=== PATIENT | female | born 1980 | race African-American/Black ===

== ENCOUNTER 2017-02-25 09:12 | Outpatient (CLI) | payer MEDICAID ==
[2017-02-25] VITALS (8 sets, daily range): BP systolic 99–126; BP diastolic 60–81; PULSE 61–79; TEMP 97.8
[~2017-02-25 09:12] MED LIST: CARDI-OMEGA1000 MG PO; CELEXA 20MG20 MG/TAB PO; CEPHALEXIN500 M1 PO; DOXYCYCLINE 10100 MG PO; FLEXERIL 1010 MG/TAB PO; IRON1 CHI; LORTAB 5/500 501 TAB PO; NO HOME MEDICATIONS; PREDNISONE20 MG PO; PRENATAL VITAMI1 TA5 PO; PRENATAL VITAMI1 TAB PO; PRENATAL1 TA1 PO; VITAMIN C500 MG PO; ZITHROMAX Z PA250 MG PO; ZOFRAN 4MG T4 MG/TAB PO
[2017-02-25 14:13] LABS: CEREBROSPINAL TUBE #4
[2017-02-25 14:14] LABS: CSF APPEARANCE CLEAR; CSF COLOR COLORLESS
== END 2017-02-25 13:08 | disposition home or self-care (01) ==
LOC: COL.RAD 09:12
PROVIDERS: Ophthalmology
DX: H47.11 Papilledema associated with increased intracranial pressure (principal); R51 Headache

== ENCOUNTER → 2017-06-26 | Outpatient (CLI) | payer MEDICAID ==
[~2017-06-26] VITALS: Ht 172.7 cm; Wt 125.4 kg
[2017-06-26 08:31] VITALS: BP 96/60; PULSE 72
== END ==
LOC: LIGHT 08:33
DX: F33.9 Major depressive disorder, recurrent, unspecified (principal); E88.81 Metabolic syndrome and other insulin resistance; E66.01 Morbid (severe) obesity due to excess calories; Z68.41 Body mass index [BMI] 40.0-44.9, adult; Z71.3 Dietary counseling and surveillance; N39.3 Stress incontinence (female) (male)

== ENCOUNTER → 2017-07-02 | Outpatient (CLI) | payer MEDICAID | LOC: LIGHT 13:06 | DX: Z01.818 Encounter for other preprocedural examination (principal) ==

== ENCOUNTER → 2017-07-25 | Outpatient (CLI) | payer MEDICAID ==
[~2017-07-25] VITALS: Ht 172.7 cm; Wt 124.1 kg
[2017-07-25 13:14] VITALS: BP 110/70; PULSE 85
== END ==
LOC: LIGHT 09:47
DX: F33.9 Major depressive disorder, recurrent, unspecified (principal); E88.81 Metabolic syndrome and other insulin resistance; E66.01 Morbid (severe) obesity due to excess calories; Z68.41 Body mass index [BMI] 40.0-44.9, adult; Z71.3 Dietary counseling and surveillance; N39.3 Stress incontinence (female) (male)

== ENCOUNTER → 2017-07-31 | Outpatient (CLI) | payer MEDICAID | LOC: LIGHT 15:09 | DX: Z01.818 Encounter for other preprocedural examination (principal) ==

== ENCOUNTER → 2017-08-22 | Outpatient (CLI) | payer MEDICAID ==
[~2017-08-22] VITALS: Ht 172.7 cm; Wt 127.7 kg
[2017-08-22 13:47] VITALS: BP 110/70; PULSE 88
== END ==
LOC: LIGHT 09:59
DX: F33.9 Major depressive disorder, recurrent, unspecified (principal); E88.81 Metabolic syndrome and other insulin resistance; E66.01 Morbid (severe) obesity due to excess calories; Z68.41 Body mass index [BMI] 40.0-44.9, adult; Z71.3 Dietary counseling and surveillance; N39.3 Stress incontinence (female) (male)

== ENCOUNTER 2017-08-26 18:20 | Emergency (ER) | payer MEDICAID ==
[~2017-08-26] VITALS: Ht 170.2 cm; Wt 128.2 kg
[2017-08-26 18:23] VITALS: BP 142/82; TEMP 98.9
[2017-08-26] MEDS ORDERED: PREDNISONE20 MG PO (19:18)
[2017-08-26 19:33] VITALS: PULSE 93
== END 2017-08-26 19:33 | disposition home or self-care (01) ==
LOC: COL.ER 18:20
DX: L50.9 Urticaria, unspecified (principal); F41.9 Anxiety disorder, unspecified; G43.909 Migraine, unspecified, not intractable, without status migrainosus; D64.9 Anemia, unspecified; F17.210 Nicotine dependence, cigarettes, uncomplicated
CPT/HCPCS: J7512

== ENCOUNTER 2019-05-21 14:39 | Emergency (ER) | payer OTHER ==
[~2019-05-21] VITALS: Ht 170.2 cm; Wt 123.5 kg
[2019-05-21] MEDS ORDERED: PRENATAL PO (14:52)
[2019-05-21 14:59] LABS: BASO % 0.5 % (0.0-2.0); EOS # 0.3 (0.0-0.7); EOS % 3.1 % (0-4.0); GRAN # 4.4 (1.4-6.5); HEMATOCRIT 37.9 % (37.0-47.0); HEMOGLOBIN 12.3 g/dl (12.5-16.0); LYMPH # 2.5 (1.2-3.4); LYMPH % 31.9 % (20.0-51.0); MEAN CELL VOLUME 87 fl (80.0-100.0); MEAN CORPUSCULAR HEMOGLOBIN 28 pg (27.0-31.0); MEAN CORPUSCULAR HGB CONC 33 g/dl (33.0-37.0); MEAN PLATELET VOLUME 9.2 fl (7.4-10.4); MONO # 0.7 (0.1-0.6); MONO % 9.1 % (1.7-9.3); PLATELET COUNT 301 K/mm3 (130-400); RED BLOOD COUNT 4.38 M/mm3 (4.10-5.30); REDCELL DISTRIBUTION WIDTH-CV 13.4 % (11.5-14.5)
[2019-05-21 15:03] LABS: PROTHROMBIN TIME 11.4 SECONDS (9.7-12.8)
[2019-05-21 15:06] LABS: PARTIAL THROMBOPLASTIN TIME 31.4 SECONDS (26.0-37.0)
[2019-05-21 15:14] LABS: ALANINE AMINOTRANSFERASE 11 U/L (9-52); ALBUMIN 3.8 gm/dL (3.5-5.0); ALKALINE PHOSPHATASE 95 U/L (50-136); ANION GAP 12 mmol/L (7-16); AST,SGOT 31 U/L (15-37); BILIRUBIN,TOTAL 0.4 mg/dL (0.0-1.0); BLOOD UREA NITROGEN 11 mg/dL (7-17); CARBON DIOXIDE 25 mmol/L (22-30); CHLORIDE 108 mmol/L (98-107); CREATININE, serum 0.95 (0.52-1.25); GLUCOSE 93 mg/dL (74-106); POTASSIUM 3.8 mmol/L (3.4-5.0); SODIUM 145 mmol/L (137-145)
[2019-05-21 15:40] LABS: TROPONIN-I < 0.012 ng/mL (0.000-0.035)
[2019-05-21 17:30] VITALS: BP 108/83; PULSE 73; TEMP 98.3
== END 2019-05-21 17:30 | disposition home or self-care (01) ==
LOC: COL.ER 14:39
PROVIDERS: Family Medicine
DX: R07.89 Other chest pain (principal); F17.210 Nicotine dependence, cigarettes, uncomplicated; Z86.711 Personal history of pulmonary embolism

== ENCOUNTER → 2020-11-18 | Outpatient (CLI) | payer BC ==
[~2020-11-18] MED LIST changes: +PRENATAL PO
== END ==
LOC: COL.RAD 06:59
DX: K44.9 Diaphragmatic hernia without obstruction or gangrene (principal); N64.9 Disorder of breast, unspecified; Z86.711 Personal history of pulmonary embolism
CPT/HCPCS: Q9967

== ENCOUNTER → 2020-11-23 | Outpatient (CLI) | payer BC | LOC: MC.RAD 14:00 | DX: Z12.31 Encounter for screening mammogram for malignant neoplasm of breast (principal); N63.10 Unspecified lump in the right breast, unspecified quadrant ==

== ENCOUNTER 2021-08-02 15:47 | Emergency (ER) | payer SELFPAY ==
[~2021-08-02] VITALS: Ht 170.2 cm; Wt 126.8 kg
[2021-08-02 15:58] VITALS: TEMP 99.2
[2021-08-02 16:37] LABS: BASO % 0.4 % (0.0-2.0); EOS # 0.4 (0.0-0.7); EOS % 4.1 % (0-4.0); GRAN # 6.1 (1.4-6.5); GRAN % 62.2 % (42.2-75.2); HEMATOCRIT 40.6 % (37.0-47.0); HEMOGLOBIN 13.1 g/dl (12.5-16.0); LYMPH # 2.5 (1.2-3.4); LYMPH % 24.9 % (20.0-51.0); MEAN CELL VOLUME 87 fl (80.0-100.0); MEAN CORPUSCULAR HEMOGLOBIN 28 pg (27.0-31.0); MEAN CORPUSCULAR HGB CONC 32 g/dl (33.0-37.0); MEAN PLATELET VOLUME 9.1 fl (7.4-10.4); MONO # 0.8 (0.1-0.6); MONO % 8.1 % (1.7-9.3); PLATELET COUNT 321 K/mm3 (130-400); RED BLOOD COUNT 4.68 M/mm3 (4.10-5.30); REDCELL DISTRIBUTION WIDTH-CV 12.9 % (11.5-14.5)
[2021-08-02 16:42] LABS: PROTHROMBIN TIME 11.5 SECONDS (9.7-12.8)
[2021-08-02 16:45] LABS: PARTIAL THROMBOPLASTIN TIME 30.1 SECONDS (26.0-37.0)
[2021-08-02 16:50] LABS: ALANINE AMINOTRANSFERASE 14 U/L (0-55); ALBUMIN 3.2 gm/dL (3.5-5.0); ALKALINE PHOSPHATASE 92 U/L (0-750); ANION GAP 11 mmol/L; AST,SGOT 18 U/L (5-34); BILIRUBIN,TOTAL 0.4 mg/dL (0.2-1.2); BLOOD UREA NITROGEN 9 mg/dL (7-19); CALCIUM 9.2 mg/dL (8.4-10.2); CARBON DIOXIDE 26 mEq/L (22-29); CHLORIDE 104 mmol/L (98-107); CREATININE, serum 1.17 mg/dL (0.57-1.11); GLUCOSE 112 mg/dL (70-99); SODIUM 141 mmol/L (136-145); TOTAL PROTEIN 6.9 gm/dL (6.2-8.1)
[2021-08-02 16:59] LABS: TROPONIN-I < 0.010 ng/mL (0.00-0.033)
[2021-08-02] MEDS ORDERED: PERCOCET 325 MG1 TA2 PO (18:02)
[2021-08-02] MEDS ORDERED: ZITHROMAX Z PA250 MG PO (18:02)
[2021-08-02] MEDS ORDERED: ELIQUIS 5MG PO (18:02)
[2021-08-02 18:28] VITALS: BP 114/80; PULSE 83
== END 2021-08-02 18:30 | disposition home or self-care (01) ==
LOC: COL.ER 15:47
PROVIDERS: Family Medicine
DX: J90 Pleural effusion, not elsewhere classified (principal); J18.9 Pneumonia, unspecified organism; I26.99 Other pulmonary embolism without acute cor pulmonale; F17.210 Nicotine dependence, cigarettes, uncomplicated; Z86.718 Personal history of other venous thrombosis and embolism
CPT/HCPCS: J1885; Q9967

== ENCOUNTER 2021-08-03 16:56 | Observation (INO) | payer SELFPAY ==
[~2021-08-03] VITALS: Ht 170.2 cm; Wt 126.4 kg
[~2021-08-03 16:56] MED LIST changes: +ELIQUIS 5MG PO; +PERCOCET 325 MG1 TA2 PO
[2021-08-03 17:36] LABS: BASO % 0.4 % (0.0-2.0); EOS # 0.3 (0.0-0.7); EOS % 2.3 % (0-4.0); GRAN # 7.3 (1.4-6.5); GRAN % 68.3 % (42.2-75.2); HEMATOCRIT 40.4 % (37.0-47.0); HEMOGLOBIN 13.1 g/dl (12.5-16.0); LYMPH # 2.2 (1.2-3.4); LYMPH % 20.3 % (20.0-51.0); MEAN CELL VOLUME 86 fl (80.0-100.0); MEAN CORPUSCULAR HEMOGLOBIN 28 pg (27.0-31.0); MEAN CORPUSCULAR HGB CONC 32 g/dl (33.0-37.0); MONO # 0.9 (0.1-0.6); PLATELET COUNT 323 K/mm3 (130-400); RED BLOOD COUNT 4.71 M/mm3 (4.10-5.30); REDCELL DISTRIBUTION WIDTH-CV 12.7 % (11.5-14.5)
[2021-08-03 17:50] LABS: INR 1.2 (0.8-3.0); PROTHROMBIN TIME 13.2 SECONDS (9.7-12.8)
[2021-08-03 17:54] LABS: ALANINE AMINOTRANSFERASE 14 U/L (0-55); ALBUMIN 3.4 gm/dL (3.5-5.0); ALKALINE PHOSPHATASE 104 U/L (0-750); ANION GAP 11 mmol/L; AST,SGOT 17 U/L (5-34); BILIRUBIN,TOTAL 0.8 mg/dL (0.2-1.2); BLOOD UREA NITROGEN 11 mg/dL (7-19); CARBON DIOXIDE 24 mEq/L (22-29); CHLORIDE 104 mmol/L (98-107); CREATININE, serum 1.22 mg/dL (0.57-1.11); GLUCOSE 134 mg/dL (70-99); POTASSIUM 4.1 mmol/L (3.5-4.5); SODIUM 139 mmol/L (136-145); TOTAL PROTEIN 7.3 gm/dL (6.2-8.1)
[2021-08-03 18:08] LABS: TROPONIN-I < 0.010 ng/mL (0.00-0.033)
--- NOTE | 2021-08-03 22:33 | NUR ---
VERIFIED WITH LUNA CANTOR TO GIVE LOVENOX AND COUMADIN. SCEDULED FOR TOMORROW. CONFIRMED 1ST DOSE NOW.
[2021-08-04 00:01] VITALS: BP 158/75; PULSE 88; TEMP 98
--- NOTE | 2021-08-04 00:30 | NUR ---
ADMIT FROM ER WITH CO SOA, CHEST PAIN/RT SHOULDER PAIN. HX OF PE AND HAD STOPPED TAKING ELQUIS. RATING PAIN 7/10 UPON ADMIT ER JUST GAVE PAIN MED. SOME NAUSEA W PAIN. HX AND ASSESSMENT OBTAINED. MED REC COMPLETE. LUNA PLACED ADMIT ORDERS, REVIEWED. IV FLUIDS, ANTIBOTIC GAVE. POC DISCUSSED W PT. ORIENTATED TO ROOM AND CALL LIGHT. NEEDS MET.
[2021-08-04 04:43] VITALS: BP 121/61; PULSE 82; TEMP 98.2
--- NOTE | 2021-08-04 05:46 | NUR ---
DID NOT GET MUCH REST OVERNIGHT. DENIES NEED FOR PAIN MEDICATION THIS AM. NEEDS MET
--- NOTE | 2021-08-04 08:10 | NUR ---
Shift assessment complete. Pt lying in bed, lab at bedside attempting blood draw. Pt A&Ox4. Heart RRR. Lungs CTA. Reports 6/10 pain to right shoulder and chest, worse w/movement. Declines pain medication at this time due to nausea and unable to have zofran until 1045. Reports productive cough this morning w/blood-tinged sputum. Denies soreness or irritation to mouth or throat. Reports poor appetite. Declines further needs this morning. Continuing to monitor.
[2021-08-04 08:19] VITALS: BP 147/75; PULSE 86; TEMP 98
[2021-08-04 08:40] LABS: BASO % 0.4 % (0.0-2.0); EOS # 0.2 (0.0-0.7); EOS % 1.6 % (0-4.0); GRAN # 6.3 (1.4-6.5); GRAN % 67.1 % (42.2-75.2); HEMOGLOBIN 11.4 g/dl (12.5-16.0); LYMPH % 21.3 % (20.0-51.0); MEAN CELL VOLUME 86 fl (80.0-100.0); MEAN CORPUSCULAR HEMOGLOBIN 28 pg (27.0-31.0); MEAN CORPUSCULAR HGB CONC 33 g/dl (33.0-37.0); MEAN PLATELET VOLUME 9.1 fl (7.4-10.4); MONO # 0.9 (0.1-0.6); MONO % 9.3 % (1.7-9.3); PLATELET COUNT 271 K/mm3 (130-400); RED BLOOD COUNT 4.09 M/mm3 (4.10-5.30); REDCELL DISTRIBUTION WIDTH-CV 12.7 % (11.5-14.5)
[2021-08-04 08:47] LABS: HEMATOCRIT 35.1 % (37.0-47.0)
[2021-08-04 08:51] LABS: INR 1.2 (0.8-3.0); PROTHROMBIN TIME 13.3 SECONDS (9.7-12.8)
[2021-08-04 08:59] LABS: CALCIUM 8.1 mg/dL (8.4-10.2); CREATININE, serum 0.9 mg/dL (0.57-1.11); POTASSIUM 3.9 mmol/L (3.5-4.5)
[2021-08-04 11:04] VITALS: BP 133/73; PULSE 89; TEMP 98.3
--- NOTE | 2021-08-04 13:31 | NUR ---
Social griffiths met with patient to discuss discharge plan. Patient lives at home with her Jung ([phone]) in [place]. at bedside. Patient reports to being fully independent with activities of daily living and does not utilize any DME at home. PCP is Dr. Pierce and the patient utilizes [facility] pharmacy for perscriptions. Patient reports she can afford most of her medications with the execption of Eliquis. hollow handle bench worker collaborated with SAKSHI Bhakta and the patient will be started on Xarelto. hollow handle bench worker provided the patient with a 30 day free trial coupon. Patient's had just started a new job, and her insurance should be starting within 30days. Socail worker advised her to consult with PCP should concerns arise in the future. Patient reports that she does not have a DPOA-HC established but has been thinking about it. Doesn't wish to complete one at this moment but wishes to be given form. hollow handle bench worker provided. Patient plans to return home with her with no concerns. *Discharge plan: Home*
[2021-08-04] MEDS ORDERED: XARELTO STARTER20 MG PO (14:04)
--- NOTE | 2021-08-04 15:57 | NUR ---
Disharge instructions discussed w/pt and all questions answered. IV to left AC removed w/tip intact. Pt escorted out w/all belongings.
== END 2021-08-04 15:58 | disposition home or self-care (01) ==
LOC: COL.ER 16:56 → MEDICAL 20:11
PROVIDERS: Nurse Practitioner Family; Physician Assistant; ADMIT Internal Medicine
DX: I26.93 Single subsegmental thrombotic pulmonary embolism without acute cor pulmonale (principal); J18.1 Lobar pneumonia, unspecified organism; E72.51 Non-ketotic hyperglycinemia; U07.0 Vaping-related disorder; Z79.891 Long term (current) use of opiate analgesic; Z79.899 Other long term (current) drug therapy; Z87.891 Personal history of nicotine dependence; Z82.49 Family history of ischemic heart disease and other diseases of the circulatory system; Z83.3 Family history of diabetes mellitus
CPT/HCPCS: G0378; J0696; J1170; J1650; J2060; J2270; J2405; J2550; J7030

== ENCOUNTER 2023-08-06 05:22 | Emergency (ER) | payer MEDICAID ==
[~2023-08-06] VITALS: Ht 170.2 cm; Wt 133.2 kg
[~2023-08-06 05:22] MED LIST changes: +XARELTO STARTER20 MG PO
[2023-08-06 05:33] VITALS: TEMP 98.5
[2023-08-06 06:32] LABS: COLLECTION METHOD CLEAN CATCH
[2023-08-06 06:38] LABS: BASO % 0.4 % (0.0-2.0); EOS # 0.3 K/mm3 (0.0-0.7); EOS % 5.5 % (0.0-4.0); GRAN # 2.5 K/mm3 (1.4-6.5); GRAN % 48.4 % (42.2-75.2); HEMOGLOBIN 11.5 g/dl (12.5-16.0); LYMPH # 1.9 K/mm3 (1.2-3.4); LYMPH % 36.7 % (20.0-51.0); MEAN CELL VOLUME 81 fl (80.0-100.0); MEAN CORPUSCULAR HEMOGLOBIN 26 pg (27-31); MEAN CORPUSCULAR HGB CONC 32 g/dl (33.0-37.0); MEAN PLATELET VOLUME 9.6 fl (7.4-10.4); MONO # 0.4 K/mm3 (0.1-0.6); MONO % 8.6 % (1.7-9.3); PLATELET COUNT 308 K/mm3 (130-400); RED BLOOD COUNT 4.44 M/mm3 (4.10-5.30); REDCELL DISTRIBUTION WIDTH-CV 14.6 % (11.5-14.5)
[2023-08-06 06:39] LABS: HEMATOCRIT 36.1 % (37.0-47.0)
[2023-08-06 06:50] LABS: INR 1.1 (0.8-3.0); PROTHROMBIN TIME 11.6 SECONDS (9.7-12.8)
[2023-08-06 06:51] LABS: STREP SCREEN NEGATIVE
[2023-08-06 06:53] LABS: PARTIAL THROMBOPLASTIN TIME 21.2 SECONDS (26.0-37.0)
[2023-08-06 06:56] LABS: ALANINE AMINOTRANSFERASE 12 U/L (0-55); ALBUMIN 3.5 gm/dL (3.5-5.0); ALKALINE PHOSPHATASE 99 U/L (40-150); ANION GAP 11 mmol/L (7-16); AST,SGOT 15 U/L (5-34); BILIRUBIN,TOTAL 0.5 mg/dL (0.2-1.2); BLOOD UREA NITROGEN 11 mg/dL (7-19); C-REACTIVE PROTEIN 2.78 mg/dL (0.00-0.50); CALCIUM 8.8 mg/dL (8.4-10.2); CARBON DIOXIDE 20 mmol/L (22-29); CHLORIDE 109 mmol/L (98-107); CREATININE, serum 0.93 mg/dL (0.57-1.11); GLUCOSE 105 mg/dL (70-99); MAGNESIUM 1.9 mg/dL (1.6-2.6); SODIUM 140 mmol/L (136-145); TOTAL PROTEIN 7.3 gm/dL (6.2-8.1)
[2023-08-06 07:04] LABS: PH 5.5 (5.0-8.5); URINE APPEARANCE Clear (CLEAR/HAZY); URINE BLOOD TRACE-INTACT (NEGATIVE); URINE COLOR Yellow (YELLOW); URINE GLUCOSE Negative (NEGATIVE); URINE KETONE Negative (NEGATIVE); URINE NITRATE Negative (NEGATIVE); URINE PROTEIN(semi-quant) Negative (NEGATIVE); URINE UROBILINOGEN 0.2 E.U/dL (0.2-1.0)
[2023-08-06 07:04] LABS: TROPONIN-I < 0.010 ng/mL (0.00-0.033)
[2023-08-06 07:05] LABS: MUCOUS Present (NOT PRESENT); URINE BACTERIA Occasional /hpf (NONE SEEN)
[2023-08-06 08:36] VITALS: BP 124/85; PULSE 68
== END 2023-08-06 08:36 | disposition home or self-care (01) ==
LOC: COL.ER 05:22
PROVIDERS: Emergency Medicine
DX: U07.1 COVID-19 (principal); R07.81 Pleurodynia; R06.02 Shortness of breath; R05.9 Cough, unspecified; R53.81 Other malaise; Z86.711 Personal history of pulmonary embolism; Z28.310 Unvaccinated for COVID-19; Z79.01 Long term (current) use of anticoagulants
CPT/HCPCS: Q9967

== ENCOUNTER 2024-03-01 09:47 | Emergency (ER) | payer MEDICAID ==
[~2024-03-01] VITALS: Ht 170.2 cm; Wt 135.5 kg
[~2024-03-01 09:47] MED LIST changes: +PREDNISONE50 MG PO
[2024-03-01 09:53] VITALS: TEMP 98.2
[2024-03-01 10:10] LABS: COLLECTION METHOD CLEAN CATCH
[2024-03-01 10:14] LABS: BASO % 0.4 % (0.0-2.0); EOS # 0.3 K/mm3 (0.0-0.7); EOS % 3.2 % (0.0-4.0); GRAN # 4.5 K/mm3 (1.4-6.5); GRAN % 53.8 % (42.2-75.2); HEMATOCRIT 38.2 % (37.0-47.0); HEMOGLOBIN 11.9 g/dl (12.5-16.0); LYMPH # 2.9 K/mm3 (1.2-3.4); LYMPH % 34.2 % (20.0-51.0); MEAN CELL VOLUME 79 fl (80.0-100.0); MEAN CORPUSCULAR HEMOGLOBIN 25 pg (27-31); MEAN CORPUSCULAR HGB CONC 31 g/dl (33.0-37.0); MEAN PLATELET VOLUME 9.2 fl (7.4-10.4); MONO # 0.7 K/mm3 (0.1-0.6); PLATELET COUNT 387 K/mm3 (130-400); RED BLOOD COUNT 4.83 M/mm3 (4.10-5.30); REDCELL DISTRIBUTION WIDTH-CV 14.9 % (11.5-14.5)
[2024-03-01] MEDS ORDERED: Morphine 4 MG/ML VIAL IV ONE (10:15)
[2024-03-01] MEDS ORDERED: Ondansetron 4 MG/2 ML VIAL IV ONE (10:15)
[2024-03-01] MEDS ORDERED: NS 1,000 ML IV ONE (10:15)
[2024-03-01 10:16] LABS: PH 6.5 (5.0-8.5); URINE APPEARANCE CLEAR (CLEAR/HAZY); URINE BLOOD NEGATIVE (NEGATIVE); URINE COLOR YELLOW (YELLOW); URINE GLUCOSE NEGATIVE (NEGATIVE); URINE KETONE NEGATIVE (NEGATIVE); URINE NITRATE NEGATIVE (NEGATIVE); URINE PROTEIN(semi-quant) NEGATIVE (NEGATIVE)
[2024-03-01 10:31] LABS: ALBUMIN 3.3 g/dL (3.5-5.0); BILIRUBIN,TOTAL 0.3 mg/dL (0.2-1.2); CALCIUM 9.2 mg/dL (8.4-10.2); CREATININE, serum 1.02 mg/dL (0.57-1.11); POTASSIUM 4.3 mEq/L (3.5-4.5); TOTAL PROTEIN 7.7 g/dl (6.2-8.1)
[2024-03-01] MEDS ORDERED: Iohexol 300 - 100 ML VIAL IV ONE (11:03)
[2024-03-01] MEDS ORDERED: NS 100 ML IV SCH (11:05)
[2024-03-01] MEDS ORDERED: NORCO 325 MG-51 TAB PO (11:26)
[2024-03-01] MEDS ORDERED: ZOFRAN 4MG T4 MG/TAB PO (11:26)
[2024-03-01 11:36] VITALS: BP 133/81; PULSE 75
== END 2024-03-01 11:37 | disposition home or self-care (01) ==
LOC: COL.ER 09:47
PROVIDERS: Physician Assistant
DX: N13.2 Hydronephrosis with renal and ureteral calculous obstruction (principal); Z86.711 Personal history of pulmonary embolism; Z79.01 Long term (current) use of anticoagulants
CPT/HCPCS: J2270; J2405; J7030; Q9967